=== PATIENT | female | born 1995 | race Caucasian/White ===

== ENCOUNTER 2016-06-11 03:46 | Emergency (ER) | payer BC ==
[2016-06-11] MEDS ORDERED: Magnesium Citrate Solution 296 ML Bottle PO ONE (04:45)
[2016-06-11 04:59] VITALS: BP 113/74
--- NOTE | 2016-06-15 08:06 | ER ---
DATE SEEN: 06/11/2016 The patient was seen at approximately 0355 hours. CHIEF COMPLAINT: Vaginal bleeding. HISTORY OF PRESENT ILLNESS: This 20-year-old female is anxious, came in because she had mild suprapubic tightness and is , approximately 8-1/2 weeks. Last menstrual period indeterminate, and is taking vitamins. Does not smoke or drink alcohol, otherwise healthy. ALLERGIES: Allergic to Amoxil, Augmentin, cefadroxil, clavulanic acid from Augmentin. MEDICATIONS: Levothyroxine 25 mcg daily for hypothyroidism. SOCIAL HISTORY: She does no use street drugs or other drugs or drink alcohol. REVIEW OF SYSTEMS: Otherwise, the patient is healthy. She has no vomiting. No nausea or diarrhea. She is slightly apprehensive. She is here accompanied by her mother and her sister. PHYSICAL EXAMINATION: VITAL SIGNS: Blood pressure 115/78, heart rate 95, respirations 18, oxygen saturation 100%, temperature 36.6 degrees centigrade. HEENT: PERRLA. Mild scleral injection. She looks somewhat asthenic. Decreased muscle mass, compared to someone who is the same age. HEENT: Pharynx without abnormality. NECK: No thyromegaly or masses in the neck. LUNGS: Clear to auscultation without rales, rhonchi, or wheezes. HEART: S1, S2. No murmur. No irregular rate or rhythm. ABDOMEN: Soft, mild suprapubic discomfort, minimal. GENITOURINARY: Uterus is palpable. EXTREMITIES: Without edema. Deep tendon reflexes normal. Quick look ultrasound, heartbeat is noted. ASSESSMENT: , no suggestion of bleed in the placenta. The placenta is anterior. No placenta previa. I did not perform a pelvic exam. She has had a small amount of spotting. She has not had saturated pads. At this time, she is not bleeding extensively. No recent intercourse. She thought perhaps blood may have come from her straining because she has had constipation. PLAN: Take half a bottle of magnesium citrate and use MiraLAX 1 scoop daily. Follow up with the doctor this week. If worse bleeding, return to the ED otherwise. DIAGNOSIS: First trimester with viable fetus and no evidence for placenta previa. /[id number] STEFAN/DOML
== END 2016-06-11 05:00 | disposition home or self-care (01) ==
LOC: FB.ED 03:46
DX: O99.89 Other specified diseases and conditions complicating pregnancy, childbirth and the puerperium (principal); R10.819 Abdominal tenderness, unspecified site
CPT/HCPCS: 36415; 81001; 84702; 99283; A9270

== ENCOUNTER 2016-10-25 14:55 | Inpatient (IN) | payer BC, MEDICAID ==
[2016-10-25] MEDS ORDERED: Sodium Chloride 0.9% 10 ML Syringe FLUSH PRN (16:23)
[2016-10-25] MEDS: Lactated Ringers 1,000 ML IV SCH ×2 (18:45→20:55)
[2016-10-25] MEDS ORDERED: fentaNYL 100 MCG/2 ML SDV EPIDUR ONE (18:58)
[2016-10-25] MEDS ORDERED: fentaNYL 300 MCG in Ropivacaine 200 ML EPIDUR ONE (18:58)
--- NOTE | 2016-10-25 19:53 | PCM.LDHP ---
L&D History of Present Illness - General Date of Service: 10/25/16 Admit Problem/Dx: Patient Status Order with Admit Dx/Problem 10/25/16 15:00 Admission Status [Patient Status] [ADT] Routine 10/25/16 16:11 Patient Status [ADT] Routine Admission Diagnosis/Problem Admission Diagnosis/Problem Source of Information: Patient History Limitations: Reports: No Limitations - History of Present Illness Introduction:: 21 yo primi admited for early labor. Was initially scheduled for induction tomorrow. EDC 11/01/2016 Timing/Duration: Reports: gradual onset Quality: Reports: Sharp Improves with: Reports: None - Related Data Allergies/Adverse Reactions: Allergies Allergy/AdvReac Type Severity Reaction Status Date / Time amoxicillin [From Augmentin] Allergy Nausea and Verified 10/25/16 15:39 Vomiting cefadroxil [From Duricef] Allergy Nausea and Verified 10/25/16 15:39 Vomiting clavulanic acid Allergy Nausea and Verified 10/25/16 15:39 [From Augmentin] Vomiting Home Medications: Home Meds Levothyroxine 25 mcg PO DAILY 06/11/16 [History] Pnv with Ca,No.72/Iron/Fa [Pnv Plus Multivit Tab] 1 tab PO DAILY [History] Polyethylene Glycol 3350 [MiraLAX] 1 packet PO ASDIRECTED PRN 10/25/16 [History] Past Medical History Gastrointestinal History: Reports: Other (See Below) Other Gastrointestinal History: constipation 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 Has polygohydraminos. Psychiatric History: Reports: Depression, Learning Disability Endocrine/Metabolic History: Reports: Hyperthyroidism, Other (See Below) Other Endocrine/Metabolic History: takes medication for overactive thyroid - Past Surgical History HEENT Surgical History: Reports: Tonsillectomy GI Surgical History: Reports: None Female Surgical History: Reports: None Social & Family History - Family History Family Medical History: Noncontributory - Tobacco Use Smoking Status *Q: Never Smoker Second Hand Smoke Exposure: No - Caffeine Use Caffeine Use: Reports: None - Recreational Drug Use Recreational Drug Use: No H&P Review of Systems - Review of Systems: Review Of Systems: ROS reveals no pertinent complaints other than HPI. L&D Exam - Exam Exam: See Below - Vital Signs Vital Signs: Last Vital Signs Temp 98.3 F 10/25/16 17:00 Pulse 105 H 10/25/16 17:00 Resp 18 10/25/16 17:00 BP 125/87 10/25/16 17:00 Pulse Ox 99 10/25/16 15:03 Weight: 62.142 kg - OB Specific Contraction Duration (sec): 40-90 Contraction Frequency (min): 1-4 Contraction Intensity: Moderate - Montilla Score Montilla Score Cervix Position: Anterior Montilla Score Consistency: Soft Montilla Score Effacement: >80% Montilla Score Dilation: 3-4 cm Montilla Score Infant's Station: -1 ,0 Montilla Score Total: 11 - Exam General: Alert, Oriented HEENT: PERRLA, Conjunctiva Clear, EACs Clear, EOMI, Hearing Intact, Mucosa Moist & [place], Nares Patent, Normal Nasal Septum, Posterior Pharynx Clear, TMs Clear Neck: Supple, Trachea Midline Lungs: Clear to Auscultation, Normal Respiratory Effort Cardiovascular: Regular Rate, Regular Rhythm GI/Abdominal Exam: Normal Bowel Sounds, Soft, Non-Tender, No Organomegaly, No Distention, No Abnormal Bruit, No Mass, Pelvis Stable Rectal Exam: Normal Exam, Normal Rectal Tone Genitourinary: Normal external exam, Normal bimanual exam, Normal speculum exam Back Exam: Normal Inspection, Full Range of Motion Extremities: Normal Inspection, Normal Range of Motion, Non-Tender, No Pedal Edema, Normal Capillary Refill Skin: Warm, Dry, Intact Neurological: Cranial Nerves Intact, Reflexes Equal Bilateral Psychiatric: Alert, Normal Affect, Normal Mood - Problem List (1) Polyhydramnios affecting SNOMED Code(s): 68303711, 446419680 ICD Code: O40.9XX0 - POLYHYDRAMNIOS, UNSP TRIMESTER, NOT APPLICABLE OR UNSP Status: Acute Current Visit: Yes (2) Labor established SNOMED Code(s): 41435392 ICD Code: [id number] - Status: Acute Current Visit: Yes Problem List Initiated/Reviewed/Updated: Yes Orders Last 24hrs: Active Orders 24 hr Category Date Time Status Admission Status [Patient Status] [ADT] Routine ADT 10/25/16 15:00 Active Patient Status [ADT] Routine ADT 10/25/16 16:11 Active Communication Order [RC] ASDIRECTED Care 10/25/16 16:24 Active Heart Tones [RC] PER UNIT ROUTINE Care 10/25/16 16:24 Active Notify Provider Vital Signs [RC] PRN Care 10/25/16 16:11 Active Notify Provider [RC] PRN Care 10/25/16 16:24 Active Vital Signs [RC] PER UNIT ROUTINE Care 10/25/16 16:24 Active Lactated Ringers [Ringers, Lactated] 1,000 ml Med 10/25/16 18:45 Active IV ASDIRECTED Sodium Chloride 0.9% [Saline Flush] Med 10/25/16 16:23 Active 10 ml FLUSH ASDIRECTED PRN Saline Lock Insert [OM.PC] Routine Oth 10/25/16 16:24 Ordered Resuscitation Status Routine Resus Stat 10/25/16 16:23 Ordered Medication Orders Lactated Ringer's (Ringers, Lactated) 1,000 mls @ 125 mls/hr IV ASDIRECTED INGA Sodium Chloride (Saline Flush) 10 ml FLUSH ASDIRECTED PRN PRN Reason: Keep Vein Open Last Admin: 10/25/16 16:41 Dose: 10 ml Assessment/Plan Comment:: Admit for labor. Controlled AROM done.Clear fluid. Continue expectant care.
[2016-10-25] MEDS ORDERED: Naloxone 0.4 MG in Sodium Chloride 0.9% 100 ML IV PRN (22:16)
[2016-10-25] MEDS ORDERED: Metoclopramide 10 MG/2 ML SDV IVPUSH PRN (22:16)
[2016-10-25] MEDS ORDERED: Naloxone 0.4 MG/ML SDV IVPUSH PRN (22:16)
[2016-10-25] MEDS ORDERED: Promethazine 25 MG/ML SDV IV PRN (22:16)
[2016-10-25] MEDS ORDERED: diphenhydrAMINE 50 MG/ML SDV IVPUSH PRN (22:16)
[2016-10-25] MEDS ORDERED: ePHEDrine 50 MG/ML SDV IVPUSH PRN (22:16)
[2016-10-25] MEDS ORDERED: Ondansetron 4 MG/2 ML SDV IVPUSH PRN (22:18)
[2016-10-25] MEDS ORDERED: Lactated Ringers 500 ML IV ONE (22:30)
[2016-10-26] MEDS ORDERED: Oxytocin 10 Units/1 ML SDV IM PRN (02:46)
[2016-10-26] MEDS ORDERED: Ibuprofen 600 MG Tab PO PRN (02:46)
[2016-10-26] MEDS ORDERED: Misoprostol 200 MCG Tab RECTAL SCH (03:00)
--- NOTE | 2016-10-26 09:19 | DEL ---
DATE OF DELIVERY: 10/26/2016 PHYSICIAN: Emanuel Arana MD PRELIMINARY DIAGNOSES: 1. Polyhydramnios. 2. Term . 3. Active labor. POST-DELIVERY DIAGNOSES: 1. Spontaneous vaginal delivery. 2. hemorrhage. 3. Second-degree perineal tear. 4. History of a polyhydramnios. DELIVERY SUMMARY: The patient was admitted in active labor. She asked and received epidural analgesia, continued to push and was complete at about quarter to midnight. I came into the room around 0130 hours and she continued to push, would push with strong contractions. Vertex vaginal delivery was accomplished at 0219 hours. There was a nuchal cord that was reduced before delivery. The baby's position was NEVIN. The baby was placed on the maternal abdomen, delayed cord clamping was done. Gentle rubbing of the face was done. After about a minute, the cord was cut and clamped and the baby was handed to the waiting nurses. There was delayed expulsion of the placenta, approximately 20 minutes. During this time, I repaired the second-degree midline perineal tear with 4-0 Vicryl. After the placenta delivered intact, three vessel, there was brisk uterine bleeding that was noted. Ten units of IM oxytocin was given, massage was accomplished bimanually with continued bleeding, which I estimate to be about 600 mL total, I inserted 800 mcg of Cytotec rectally. The patient's vital signs remained stable. The product of the delivery was a live male with scores of 9 and 9, weighing 7 pounds 14 ounces. FOLLOW UP: We will continue with routine monitoring, vital signs every 2 hours initially, and repeat a CBC in the morning. /[id number] NEGRO/LORI
[2016-10-27] MEDS ORDERED: Polyethylene Glycol 3350 Powder 17 GM Packet PO ONE (19:44)
--- NOTE | 2016-10-27 19:44 | PCM.PNPP ---
- General Info Date of Service: 10/27/16 Admission Dx/Problem (Free Text): Patient Status Order with Admit Dx/Problem 10/25/16 15:00 Admission Status [Patient Status] [ADT] Routine 10/25/16 16:11 Patient Status [ADT] Routine Admission Diagnosis/Problem Admission Diagnosis/Problem Functional Status: Reports: Pain Controlled, Tolerating Diet - Review of Systems General: Reports: No Symptoms HEENT: Reports: No Symptoms Pulmonary: Reports: No Symptoms Cardiovascular: Reports: No Symptoms Gastrointestinal: Reports: No Symptoms, Constipation Genitourinary: Reports: No Symptoms Musculoskeletal: Reports: No Symptoms Skin: Reports: No Symptoms Neurological: Reports: No Symptoms Psychiatric: Reports: No Symptoms - General Info Date of Service: 10/27/16 - Patient Data Vital Signs - Most Recent: Last Vital Signs Temp 97.6 F 10/27/16 16:20 Pulse 90 10/27/16 16:20 Resp 14 10/27/16 16:20 BP 107/74 10/27/16 16:20 Pulse Ox 98 10/27/16 16:20 Weight - Most Recent: 62.142 kg I&O - Last 24 Hours: Intake & Output 10/27/16 10/27/16 10/27/16 06:59 14:59 22:59 Intake Total 240 Balance 240 Med Orders - Current: Current Medications Lactated Ringer's (Ringers, Lactated) 1,000 mls @ 125 mls/hr IV ASDIRECTED INGA Last Admin: 10/25/16 20:55 Dose: 125 mls/hr Ibuprofen (Motrin) 600 mg PO Q4H PRN PRN Reason: Pain Last Admin: 10/26/16 23:43 Dose: 600 mg Metoclopramide HCl (Reglan) 10 mg IVPUSH Q6H PRN PRN Reason: N/V Oxytocin (Pitocin) 10 unit IM ONETIME PRN PRN Reason: excessive vaginal bleeding Last Admin: 10/26/16 02:39 Dose: 10 unit Sodium Chloride (Saline Flush) 10 ml FLUSH ASDIRECTED PRN PRN Reason: Keep Vein Open Last Admin: 10/25/16 16:41 Dose: 10 ml Discontinued Medications Diphenhydramine HCl (Benadryl) 25 mg IVPUSH ASDIRECTED PRN PRN Reason: PRURITUS Ephedrine Sulfate (Ephedrine Sulfate) 5 mg IVPUSH ASDIRECTED PRN PRN Reason: HYPOTENSION Naloxone HCl 0.4 mg/ Sodium (Chloride) 101 mls @ 25 mls/hr IV ASDIRECTED PRN PRN Reason: PER ORDER OF ANESTHESIA Lactated Ringer's (Ringers, Lactated) 500 mls @ 500 mls/hr IV ASDIRECTED ONE Stop: 10/25/16 23:29 Last Admin: 10/25/16 19:46 Dose: 500 mls/hr Misoprostol (Cytotec) 800 mcg RECTAL ONETIME INGA Last Admin: 10/26/16 02:40 Dose: 800 mcg Naloxone HCl (Narcan) 0.1 mg IVPUSH ASDIRECTED PRN PRN Reason: RESPIRATORY STATUS Ondansetron HCl (Zofran) 4 mg IVPUSH Q6H PRN PRN Reason: Nausea/Vomiting Promethazine HCl (Phenergan) 6.25 - 12.5 mg IV Q4H PRN PRN Reason: NAUSEA AND VOMITING - Infant Interaction Disposition, : at Bedside Interaction: Holding Infant Feeding: Attempted ; Nursed Fair/Poor Support Person: Mother, Significant Other - Recovery Exam Fundal Tone: Firm Fundal Level: 1 Fingerbreadths Below Umbilicus Fundal Placement: Midline Lochia Amount: Moderate Lochia Color: Rubra/Red Perineum Description: Intact, Minimal Bruising/Swelling Episiotomy/Laceration: Approximated Bladder Status: Voiding Urinary Elimination: Voided - Exam General: Alert, Oriented HEENT: Pupils Equal Neck: Supple Lungs: Clear to Auscultation, Normal Respiratory Effort Cardiovascular: Regular Rate, Regular Rhythm GI/Abdominal Exam: Normal Bowel Sounds, Soft, Non-Tender, No Organomegaly, No Distention, No Abnormal Bruit, No Mass, Pelvis Stable Extremities: Normal Inspection, Normal Range of Motion, Non-Tender, No Pedal Edema, Normal Capillary Refill Skin: Warm, Dry, Intact Wound/Incisions: Healing Well Neurological: No New Focal Deficit Psy/Mental Status: Alert, Normal Affect, Normal Mood - Problem List & Annotations (1) Polyhydramnios affecting SNOMED Code(s): 26084513, 633475321 Code(s): O40.9XX0 - POLYHYDRAMNIOS, UNSP TRIMESTER, NOT APPLICABLE OR UNSP Status: Acute Current Visit: Yes (2) Labor established SNOMED Code(s): 79339568 Code(s): HZQ7095 - Status: Acute Current Visit: Yes (3) care and examination SNOMED Code(s): 660708286, 661471868, 357556569 Code(s): Z39.2 - ENCOUNTER FOR ROUTINE FOLLOW-UP Status: Acute Current Visit: Yes (4) Constipation SNOMED Code(s): 09636333 Code(s): K59.00 - CONSTIPATION, UNSPECIFIED Status: Acute Current Visit: Yes Qualifiers: Constipation type: slow transit constipation Qualified Code(s): K59.01 - Slow transit constipation - Problem List Review Problem List Initiated/Reviewed/Updated: Yes - Plan Plan:: Routine care. Has some constipation. Will try Miralax
--- NOTE | 2016-10-28 07:54 | PCM.PNPP ---
- General Info Date of Service: 10/28/16 Admission Dx/Problem (Free Text): Patient Status Order with Admit Dx/Problem 10/25/16 15:00 Admission Status [Patient Status] [ADT] Routine 10/25/16 16:11 Patient Status [ADT] Routine Admission Diagnosis/Problem Admission Diagnosis/Problem Functional Status: Reports: Pain Controlled - Review of Systems General: Reports: No Symptoms HEENT: Reports: No Symptoms Pulmonary: Reports: No Symptoms Cardiovascular: Reports: No Symptoms Gastrointestinal: Reports: No Symptoms Genitourinary: Reports: No Symptoms Musculoskeletal: Reports: No Symptoms Skin: Reports: No Symptoms Neurological: Reports: No Symptoms Psychiatric: Reports: No Symptoms - General Info Date of Service: 10/28/16 - Patient Data Vital Signs - Most Recent: Last Vital Signs Temp 98.2 F 10/28/16 00:15 Pulse 102 H 10/28/16 00:15 Resp 16 10/28/16 00:15 BP 119/84 10/28/16 00:15 Pulse Ox 97 10/28/16 00:15 Weight - Most Recent: 62.142 kg Med Orders - Current: Current Medications Lactated Ringer's (Ringers, Lactated) 1,000 mls @ 125 mls/hr IV ASDIRECTED INGA Last Admin: 10/25/16 20:55 Dose: 125 mls/hr Ibuprofen (Motrin) 600 mg PO Q4H PRN PRN Reason: Pain Last Admin: 10/26/16 23:43 Dose: 600 mg Metoclopramide HCl (Reglan) 10 mg IVPUSH Q6H PRN PRN Reason: N/V Oxytocin (Pitocin) 10 unit IM ONETIME PRN PRN Reason: excessive vaginal bleeding Last Admin: 10/26/16 02:39 Dose: 10 unit Sodium Chloride (Saline Flush) 10 ml FLUSH ASDIRECTED PRN PRN Reason: Keep Vein Open Last Admin: 10/25/16 16:41 Dose: 10 ml Discontinued Medications Diphenhydramine HCl (Benadryl) 25 mg IVPUSH ASDIRECTED PRN PRN Reason: PRURITUS Ephedrine Sulfate (Ephedrine Sulfate) 5 mg IVPUSH ASDIRECTED PRN PRN Reason: HYPOTENSION Naloxone HCl 0.4 mg/ Sodium (Chloride) 101 mls @ 25 mls/hr IV ASDIRECTED PRN PRN Reason: PER ORDER OF ANESTHESIA Lactated Ringer's (Ringers, Lactated) 500 mls @ 500 mls/hr IV ASDIRECTED ONE Stop: 10/25/16 23:29 Last Admin: 10/25/16 19:46 Dose: 500 mls/hr Misoprostol (Cytotec) 800 mcg RECTAL ONETIME INGA Last Admin: 10/26/16 02:40 Dose: 800 mcg Naloxone HCl (Narcan) 0.1 mg IVPUSH ASDIRECTED PRN PRN Reason: RESPIRATORY STATUS Ondansetron HCl (Zofran) 4 mg IVPUSH Q6H PRN PRN Reason: Nausea/Vomiting Polyethylene Glycol (Miralax) 17 gm PO ONETIME ONE Stop: 10/27/16 19:45 Last Admin: 10/27/16 19:54 Dose: Not Given Promethazine HCl (Phenergan) 6.25 - 12.5 mg IV Q4H PRN PRN Reason: NAUSEA AND VOMITING - Interaction Infant Disposition, : [place] at Bedside Infant Interaction: Holding Infant Feeding: Attempted ; Nursed Fair/Poor Support Person: Mother, Significant Other - Recovery Exam Fundal Tone: Firm Fundal Level: 1 Fingerbreadths Below Umbilicus Fundal Placement: Midline Lochia Amount: Small, Moderate Lochia Color: Rubra/Red Perineum Description: Intact, Minimal Bruising/Swelling Episiotomy/Laceration: Approximated Bladder Status: Voiding Urinary Elimination: Voided - Exam General: Alert, Oriented HEENT: Pupils Equal Neck: Supple Lungs: Clear to Auscultation, Normal Respiratory Effort Cardiovascular: Regular Rate, Regular Rhythm GI/Abdominal Exam: Normal Bowel Sounds, Soft, Non-Tender, No Organomegaly, No Distention, No Abnormal Bruit, No Mass, Pelvis Stable Extremities: Normal Inspection, Normal Range of Motion, Non-Tender, No Pedal Edema, Normal Capillary Refill Skin: Warm, Dry, Intact Wound/Incisions: Healing Well Neurological: No New Focal Deficit Psy/Mental Status: Alert, Normal Affect, Normal Mood - Problem List & Annotations (1) Polyhydramnios affecting SNOMED Code(s): 54842249, 061053445 Code(s): O40.9XX0 - POLYHYDRAMNIOS, UNSP TRIMESTER, NOT APPLICABLE OR UNSP Status: Acute Current Visit: Yes (2) Labor established SNOMED Code(s): 42044813 Code(s): TQJ4448 - Status: Acute Current Visit: Yes (3) care and examination SNOMED Code(s): 164275085, 505242976, 109658597 Code(s): Z39.2 - ENCOUNTER FOR ROUTINE FOLLOW-UP Status: Acute Current Visit: Yes (4) Constipation SNOMED Code(s): 69166890 Code(s): K59.00 - CONSTIPATION, UNSPECIFIED Status: Acute Current Visit: Yes Qualifiers: Constipation type: slow transit constipation Qualified Code(s): K59.01 - Slow transit constipation - Problem List Review Problem List Initiated/Reviewed/Updated: Yes - Plan Plan:: D C home today
[2016-10-28 08:16] VITALS: BP 138/78
--- NOTE | 2016-10-28 10:29 | DISCH ---
DISCHARGE DATE: 10/28/2016 ADMISSION DIAGNOSES: 1. Uterine contractions. 2. Polyhydramnios. DISCHARGE DIAGNOSIS: Spontaneous vaginal delivery. BRIEF HISTORY AND HOSPITAL COURSE: This 21-year-old female was admitted with regular uterine contractions. She has had an unremarkable except for polyhydramnios. She delivered vaginally. She developed a second-degree midline laceration that was repaired expeditiously. Product of the delivery were scores of 9 and 9, male live . , she had some constipation that was treated conservatively. Hemoglobin only dropped to 11.3. Her vital signs remained normal. She was discharged home in stable condition on 10/28/2016. FOLLOWUP: She will see me in the office in 6 weeks. For now, continue with ibuprofen as needed for pain and vitamins. I spent 35 minutes in the discharge of the patient. /[id number] NEGRO/LORI
== END 2016-10-28 11:27 | disposition home or self-care (01) | DRG 542 ==
LOC: FB.OBCHECK 14:55 → FB.OB 14:55 → EDSTATUS 14:55 → FB.OB 16:11 → FB.OBCHECK 16:11 → UNDOADMIN 16:11 → FB.OB 10-26 02:19
PROVIDERS: ADMIT Family Medicine; ATTEND Family Medicine
PROC: 10E0XZZ Delivery of Products of Conception, External Approach (ICD-10-PCS; principal; 2016-10-26)
PROC: 10907ZC Drainage of Amniotic Fluid, Therapeutic from Products of Conception, Via Natural or Artificial Opening (ICD-10-PCS; 2016-10-26)
PROC: 0KQM0ZZ Repair Perineum Muscle, Open Approach (ICD-10-PCS; 2016-10-26)
PROC: 0W3R7ZZ Control Bleeding in Genitourinary Tract, Via Natural or Artificial Opening (ICD-10-PCS; 2016-10-26)
DX: O69.81X0 Labor and delivery complicated by cord around neck, without compression, not applicable or unspecified (principal); O70.1 Second degree perineal laceration during delivery; Z3A.39 39 weeks gestation of pregnancy; Z37.0 Single live birth; O72.1 Other immediate postpartum hemorrhage; F81.9 Developmental disorder of scholastic skills, unspecified; O99.343 Other mental disorders complicating pregnancy, third trimester; K59.01 Slow transit constipation; O40.9XX0 Polyhydramnios, unspecified trimester, not applicable or unspecified; O99.283 Endocrine, nutritional and metabolic diseases complicating pregnancy, third trimester; E05.90 Thyrotoxicosis, unspecified without thyrotoxic crisis or storm
CPT/HCPCS: 36415; 85027; A9270-GY; J2590; J2795; J3010; J7050; J7120

== ENCOUNTER 2017-02-04 02:29 | Emergency (ER) | payer BC, MEDICAID ==
[2017-02-04] MEDS ORDERED: Ketorolac 60 MG/2 ML SDV IM ONE (02:55)
--- NOTE | 2017-02-04 03:02 | EDM.PDOC ---
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 She has had pain in the past, but sxs have escalated since 11 pm last evening. She has tried ASA and Ibuprofen without relief. - Related Data Allergies Allergy/AdvReac Type Severity Reaction Status Date / Time amoxicillin [From Augmentin] Allergy Nausea and Verified 10/25/16 15:39 Vomiting cefadroxil [From Duricef] Allergy Nausea and Verified 10/25/16 15:39 Vomiting clavulanic acid Allergy Nausea and Verified 10/25/16 15:39 [From Augmentin] Vomiting Home Meds: Home Meds Levothyroxine 25 mcg PO DAILY 06/11/16 [History] Pnv with Ca,No.72/Iron/Fa [Pnv Plus Multivit Tab] 1 tab PO DAILY [History] Polyethylene Glycol 3350 [MiraLAX] 1 packet PO ASDIRECTED PRN 10/25/16 [History] Clindamycin Hcl [IJD: Clindamycin] 150 mg PO .EVERY 8 HOURS #30 cap 02/04/17 [Rx ] Past Medical History Gastrointestinal History: Reports: Other (See Below) Other Gastrointestinal History: constipation 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 Has polygohydraminos. Psychiatric History: Reports: Depression, Learning Disability Endocrine/Metabolic History: Reports: Hyperthyroidism, Other (See Below) Other Endocrine/Metabolic History: takes medication for overactive thyroid - Past Surgical History HEENT Surgical History: Reports: Tonsillectomy GI Surgical History: Reports: None Female Surgical History: Reports: None Social & Family History - Family History Family Medical History: Noncontributory - Tobacco Use Smoking Status *Q: Never Smoker Second Hand Smoke Exposure: No - Caffeine Use Caffeine Use: Reports: None - Recreational Drug Use Recreational Drug Use: No ED ROS ENT - Review of Systems Review Of Systems: ROS reveals no pertinent complaints other than HPI. ED EXAM, ENT - Physical Exam Exam: See Below Exam Limited By: No Limitations General Appearance: Alert, WD/WN, Mild Distress Eye Exam: Bilateral Eye: Normal Inspection, PERRL Ears: Normal External Exam, Normal Canal, Normal TMs Nose: Normal Inspection Mouth/Throat: Normal Lips, Normal Oropharynx, Dental Pain (#29, #31), Gum Swelling Head: Normocephalic Neck: Normal Inspection, Supple Respiratory/Chest: Lungs Clear Cardiovascular: Regular Rate, Rhythm Back: Normal Inspection Extremities: Normal Inspection Neurological: Alert, Oriented, CN II-XII Intact, Normal Cognition, No Motor/ Sensory Deficits Psychiatric: Normal Affect, Normal Mood Skin: Warm, Dry Lymphatic: No Adenopathy Course - Vital Signs Text/Narrative:: I administered Toradol 60 mg IM for pain relief. - Orders/Labs/Meds Orders: Active Orders 24 hr Category Date Time Status Ketorolac [Toradol] Med 02/04/17 02:55 Once 60 mg IM ONETIME ONE Medication Orders Ketorolac Tromethamine (Toradol) 60 mg IM ONETIME ONE Stop: 02/04/17 02:56 Meds: Medications Generic Name Dose Route Start Last Admin Trade Name Buddy PRN Reason Stop Dose Admin Ketorolac Tromethamine 60 mg 02/04/17 02:55 Toradol IM 02/04/17 02:56 ONETIME ONE Departure - Departure Time of Disposition: 03:00 Disposition: Home, Self-Care 01 Condition: Fair Clinical Impression: Dental caries extending into pulp - Discharge Information Forms: ED Department Discharge - Problem List & Annotations (1) Dental caries extending into pulp SNOMED Code(s): 598683629 Code(s): K02.9 - DENTAL CARIES, UNSPECIFIED Status: Acute Annotation/ Comment:: I dispensed Clindamycin 150 mg tid for suspected dental infection, and recommended a DDS visit for x rays and definitive surgery. She may take NSAIDs for pain in the interim. - Problem List Review Problem List Initiated/Reviewed/Updated: Yes - My Orders Last 24 Hours: My Active Orders 02/04/17 02:55 Ketorolac [Toradol] 60 mg IM ONETIME ONE - Assessment/Plan Last 24 Hours: My Active Orders 02/04/17 02:55 Ketorolac [Toradol] 60 mg IM ONETIME ONE Plan: Follow up with DDS.
[2017-02-06 10:07] VITALS: BP 125/78
== END 2017-02-04 03:12 | disposition home or self-care (01) ==
LOC: FB.ED 02:29
DX: K02.9 Dental caries, unspecified (principal); Z88.1 Allergy status to other antibiotic agents; Z88.8 Allergy status to other drugs, medicaments and biological substances; Z79.899 Other long term (current) drug therapy
CPT/HCPCS: 96372; 99282; J1885

== ENCOUNTER 2019-12-15 11:10 | Emergency (ER) | payer BC, MEDICAID ==
[2019-12-15] MEDS ORDERED: HYDROmorphone 2 MG/ML SDV IVPUSH ONE ×2 (11:26→17:48)
[2019-12-15] MEDS ORDERED: Sodium Chloride 0.9% 10 ML Syringe FLUSH PRN (11:26)
[2019-12-15] MEDS ORDERED: Sodium Chloride 0.9% 1,000 ML IV SCH (11:30)
--- NOTE | 2019-12-15 11:58 | EDM.PDOC ---
ED HPI GENERAL MEDICAL PROBLEM - General Chief Complaint: Abdominal Pain Stated Complaint: abdominal pain Time Seen by Provider: 12/15/19 11:30 Source of Information: Reports: Patient, Family, Old Records History Limitations: Reports: No Limitations - History of Present Illness INITIAL COMMENTS - FREE TEXT/NARRATIVE: Fay comes into [facility] ED with moderately severe lower abdominal pain since 6 am today. Pain is primarily in the RLQ, lancinating, and appears to be escalating. She denies any nausea or vomiting, has not had any recent BM, and denies voiding sxs. She was in [place] yesterday for an ABD PELVIC CT w contrast of the abdomen, and her PCP received a report of a "blockage" and need to see a GI specialist. She has been experiencing sxs of lower abdominal pain since August 2019 and was seen in [place] by a specialist for a colonoscopy in September, reports unavailable. R lower abdomen Pain Score (Numeric/FACES): 10 - Related Data Allergies Allergy/AdvReac Type Severity Reaction Status Date / Time amoxicillin [From Augmentin] Allergy Nausea and Verified 12/15/19 11:18 Vomiting cefadroxil [From Duricef] Allergy Nausea and Verified 12/15/19 11:18 Vomiting clavulanic acid Allergy Nausea and Verified 12/15/19 11:18 [From Augmentin] Vomiting Home Meds: Home Meds .Bc Pill 1 tab DAILY 12/15/19 [History] Omeprazole Magnesium [Prilosec Otc] 20 mg PO DAILY 12/15/19 [History] Ondansetron [Zofran ODT] 4 mg PO Q6H PRN 12/15/19 [History] Past Medical History HEENT History: Reports: Other (See Below) Other HEENT History: Dental problems. Gastrointestinal History: Reports: Other (See Below) Other Gastrointestinal History: constipation [employer] History: Reports: , Other (See Below) Other [employer]IST History: Due early October,. Has polygohydraminos. Psychiatric History: Reports: Depression, Learning Disability Endocrine/Metabolic History: Reports: Hyperthyroidism, Other (See Below) Other Endocrine/Metabolic History: takes medication for overactive thyroid - Past Surgical History HEENT Surgical History: Reports: Tonsillectomy GI Surgical History: Reports: None Female Surgical History: Reports: None Social & Family History - Family History Family Medical History: Noncontributory - Caffeine Use Caffeine Use: Reports: None ED ROS GENERAL - Review of Systems Review Of Systems: Comprehensive ROS is negative, except as noted in HPI. ED EXAM, GI/ABD - Physical Exam Exam: See Below Exam Limited By: Physical Impairment General Appearance: Alert, WD/WN, Moderate Distress, Thin Eyes: Bilateral: Normal Appearance, EOMI Ears: Normal External Exam Nose: Normal Inspection Throat/Mouth: Normal Inspection, Normal Oropharynx Head: Normocephalic Neck: Normal Inspection, Supple, Non-Tender Respiratory/Chest: Lungs Clear Cardiovascular: Regular Rate, Rhythm, No Murmur GI/Abdominal Exam: No Organomegaly, No Distention, No Mass, Tender (RLQ>LLQ with guarding, decreased BS) (Female) Exam: Deferred Rectal (Female) Exam: Deferred Back Exam: Normal Inspection Extremities: Normal Inspection Neurological: Alert, Oriented, CN II-XII Intact, Normal Cognition, No Motor/Sensory Deficits Psychiatric: Normal Affect, Anxious Skin Exam: Warm, Dry, Intact, Normal Color Lymphatic: No Adenopathy Course - Vital Signs Text/Narrative:: Following assessment, I places an IV in the RUE and administered NS and Dilaudid 2 mg IV for pain relief. [facility] note extensive distal small bowel edema and thickening of velarde associated with some dilated loops of small bowel proximally. A partial sm bowel obstruction is suspected.Case was discussed with Dr Watt at [facility], and she will be transferred for further managament. Last Recorded V/S: Last Vital Signs Temp 36.9 C 12/15/19 11:10 Pulse 114 H 12/15/19 11:10 Resp 24 H 12/15/19 11:10 BP 116/79 12/15/19 11:10 Pulse Ox 100 12/15/19 11:10 - Orders/Labs/Meds Orders: Active Orders 24 hr Category Date Time Status CBC WITH AUTO DIFF [HEME] Stat Lab 12/15/19 11:20 Results UA W/MICROSCOPIC [URIN] Stat Lab 12/15/19 11:26 Ordered Sodium Chloride 0.9% [Normal Saline] 1,000 ml Med 12/15/19 11:30 Active IV ASDIRECTED Sodium Chloride 0.9% [Saline Flush] Med 12/15/19 11:26 Active 10 ml FLUSH ASDIRECTED PRN Peripheral IV Insertion Adult [OM.PC] Routine Oth 12/15/19 11:26 Ordered Medication Orders Sodium Chloride (Normal Saline) 1,000 mls @ 150 mls/hr IV ASDIRECTED INGA Sodium Chloride (Saline Flush) 10 ml FLUSH ASDIRECTED PRN PRN Reason: Keep Vein Open Labs: Laboratory Tests 12/15/19 12/15/19 12/15/19 Range/Units 11:20 11:20 11:20 WBC 20.7 H (4.5-12.0) X10-3/uL RBC 4.35 (3.23-5.20) x10(6)uL Hgb 12.2 (11.5-15.5) g/dL Hct 38.2 (30.0-51.3) % MCV 87.9 (80-96) fL MCH 28.1 (27.7-33.6) pg MCHC 32.0 L (32.2-35.4) g/dL RDW 13.3 (11.5-15.5) % Plt Count 576 H (125-369) X10(3)uL MPV 8.3 (7.4-10.4) fL Add Manual Diff Yes Sodium 142 (135-145) mmol/L Potassium 3.5 (3.5-5.3) mmol/L Chloride 104 (100-110) mmol/L Carbon Dioxide 32 (21-32) mmol/L BUN 10 (7-18) mg/dL Creatinine 0.8 (0.55-1.02) mg/dL Est Cr Clr Drug Dosing 63.89 mL/min Estimated GFR (MDRD) > 60 (>60) BUN/Creatinine Ratio 12.5 (9-20) Glucose 159 H (80-116) mg/dL Lactic Acid 1.1 (0.4-2.0) mmol/L Calcium 8.0 L (8.6-10.2) mg/dL C-Reactive Protein (0.5-0.9) mg/dL 12/15/19 Range/Units 11:20 WBC (4.5-12.0) X10-3/uL RBC (3.23-5.20) x10(6)uL Hgb (11.5-15.5) g/dL Hct (30.0-51.3) % MCV (80-96) fL MCH (27.7-33.6) pg MCHC (32.2-35.4) g/dL RDW (11.5-15.5) % Plt Count (125-369) X10(3)uL MPV (7.4-10.4) fL Add Manual Diff Sodium (135-145) mmol/L Potassium (3.5-5.3) mmol/L Chloride (100-110) mmol/L Carbon Dioxide (21-32) mmol/L BUN (7-18) mg/dL Creatinine (0.55-1.02) mg/dL Est Cr Clr Drug Dosing mL/min Estimated GFR (MDRD) (>60) BUN/Creatinine Ratio (9-20) Glucose (80-116) mg/dL Lactic Acid (0.4-2.0) mmol/L Calcium (8.6-10.2) mg/dL C-Reactive Protein 4.6 H* (0.5-0.9) mg/dL Meds: Medications Generic Name Dose Route Start Last Admin Trade Name Freq PRN Reason Stop Dose Admin Sodium Chloride 1,000 mls @ 150 mls/hr 12/15/19 11:30 Normal Saline IV ASDIRECTED INGA Sodium Chloride 10 ml 12/15/19 11:26 Saline Flush FLUSH ASDIRECTED PRN Keep Vein Open Discontinued Medications Generic Name Dose Route Start Last Admin Trade Name Freq PRN Reason Stop Dose Admin Hydromorphone HCl 2 mg 12/15/19 11:26 Dilaudid IVPUSH 12/15/19 11:27 ONETIME ONE Departure - Departure Time of Disposition: 12:16 Disposition: DC/Tfer to Other 70 Condition: Poor Clinical Impression: Partial small bowel obstruction - Discharge Information *PRESCRIPTION DRUG MONITORING PROGRAM REVIEWED*: Not Applicable *COPY OF PRESCRIPTION DRUG MONITORING REPORT IN PATIENT [place]: Not Applicable Referrals: Emanuel Arana MD [Primary Care Provider] - Forms: ED Department Discharge Sepsis Event Note (ED) - Evaluation Sepsis Screening Result: No Definite Risk - Focused Exam Vital Signs: Vital Signs Temp Pulse Resp BP Pulse Ox 12/15/19 11:10 36.9 C 114 H 24 H 116/79 100 - Problem List & Annotations (1) Partial small bowel obstruction SNOMED Code(s): 145624049 Code(s): K56.600 - PARTIAL INTESTINAL OBSTRUCTION, UNSPECIFIED TO CAUSE Status: Acute Current Visit: Yes Annotation/Comment:: Transfer to [facility] per Dr Watt. - Problem List Review Problem List Initiated/Reviewed/Updated: Yes - My Orders Last 24 Hours: My Active Orders 12/15/19 11:20 CBC WITH AUTO DIFF [HEME] Stat 12/15/19 11:26 UA W/MICROSCOPIC [URIN] Stat Sodium Chloride 0.9% [Saline Flush] 10 ml FLUSH ASDIRECTED PRN Peripheral IV Insertion Adult [OM.PC] Routine 12/15/19 11:30 Sodium Chloride 0.9% [Normal Saline] 1,000 ml IV ASDIRECTED - Assessment/Plan Last 24 Hours: My Active Orders 12/15/19 11:20 CBC WITH AUTO DIFF [HEME] Stat 12/15/19 11:26 UA W/MICROSCOPIC [URIN] Stat Sodium Chloride 0.9% [Saline Flush] 10 ml FLUSH ASDIRECTED PRN Peripheral IV Insertion Adult [OM.PC] Routine 12/15/19 11:30 Sodium Chloride 0.9% [Normal Saline] 1,000 ml IV ASDIRECTED Plan: Follow up with PCP.
[2019-12-15] MEDS ORDERED: Dextrose 5%-Lactated Ringers 1,000 ML IV ONE (15:35)
[2019-12-15 17:59] VITALS: BP 111/69; PULSE 134
== END 2019-12-15 17:58 | disposition other institution (70) ==
LOC: FB.ED 11:10
DX: K56.600 Partial intestinal obstruction, unspecified as to cause (principal); F32.9 Major depressive disorder, single episode, unspecified
CPT/HCPCS: 36415; 80048; 81001; 83605; 85025; 86140; 96361; 96374; 96376; 99284-25; 99285; J1170; J7030; J7121

== ENCOUNTER 2021-12-27 20:08 | Emergency (ER) | payer MEDICAID | END 2021-12-27 21:15 | disposition home or self-care (01) | LOC: FB.ED 20:08 | DX: O20.9 Hemorrhage in early pregnancy, unspecified (principal); Z3A.00 Weeks of gestation of pregnancy not specified | CPT/HCPCS: 36415; 84702; 99283 ==